=== PATIENT | female | born 1975 | race Caucasian/White ===

== ENCOUNTER → 2024-12-18 | Outpatient (REF) | payer BC ==
[2024-12-18 11:21] LABS: BASOPHILS % 0.4 % (0.0-1.0); EOSINOPHILS % 3.5 % (0.0-6.0); LYMPHOCYTES % 23.6 % (18.0-39.1); MONOCYTES % 9.1 % (4.4-11.3); NEUTROPHILS % 63.0 % (38.7-80.0); RED CELL DISTRIBUTION WIDTH 14.2 % (11.7-14.4)
[2024-12-18 11:49] LABS: INR 0.98
[2024-12-18 13:15] LABS: EST GLOMERULAR FILTRATION RATE 118.0 ML/MIN (>=60)
[2024-12-18 15:57] LABS: TOTAL PROTEIN,CSF 31.1 mg/dL (15-40)
[2024-12-18 17:21] LABS: APPEARANCE,CSF CLEAR (CLEAR); COLOR,CSF COLORLESS (COLORLESS); TUBE NUMBER 3
[2024-12-20 13:13] LABS: IGG/ALB RATIO CSF 0.2 (0.00-0.25)
[2024-12-20 16:55] LABS: CSF/SERUM ALBUMIN INDEX 5.0 (0-8)
== END ==
LOC: DX 10:55
PROVIDERS: ATTEND Psychiatry & Neurology Neurology
DX: G60.9 Hereditary and idiopathic neuropathy, unspecified (principal)
CPT/HCPCS: 36415; 62328; 80053; 82040; 82784; 82945; 83916; 84157; 84165; 84166; 85025; 85610; 85730; 89051